=== PATIENT | female | born 1945 | race Caucasian/White ===

== ENCOUNTER 2022-05-26 06:13 | Day surgery (SDC) | payer MEDICARE ==
[2022-05-25 09:54] VITALS: BMI 32.8
[2022-05-26] MEDS ORDERED: Lidocaine 1% PF 5 ML VIAL ONE (07:44)
[2022-05-26] MEDS ORDERED: PROPOFOL 200 MG/20 ML VIAL ONE (07:44)
== END 2022-05-26 08:56 | disposition home or self-care (01) ==
LOC: SDC 06:13
PROVIDERS: ATTEND Internal Medicine Gastroenterology
PROC: 0DJ08ZZ Inspection of Upper Intestinal Tract, Via Natural or Artificial Opening Endoscopic (ICD-10-PCS; principal; 2022-05-26)
PROC: 0DJD8ZZ Inspection of Lower Intestinal Tract, Via Natural or Artificial Opening Endoscopic (ICD-10-PCS; 2022-05-26)
DX: Z12.11 Encounter for screening for malignant neoplasm of colon (principal); K21.9 Gastro-esophageal reflux disease without esophagitis; K64.8 Other hemorrhoids; I48.91 Unspecified atrial fibrillation; I10 Essential (primary) hypertension; Z80.0 Family history of malignant neoplasm of digestive organs; Z79.01 Long term (current) use of anticoagulants; Z79.899 Other long term (current) drug therapy; Z95.0 Presence of cardiac pacemaker
CPT/HCPCS: 43235; G0105; J2704